=== PATIENT | female | born 2000 | race Hispanic/Latino ===

== ENCOUNTER 2020-03-02 15:47 | Day surgery (SDC) | payer OTHER ==
[2020-03-02 16:06] VITALS: BMI 27.5
[2020-03-02] MEDS ORDERED: hydrALAZINE 20 MG/ML VIAL SLOW IVP PRN (16:15)
--- NOTE | 2020-03-02 17:16 | PRG ---
DATE OF SERVICE: 03/02/2020 PRIMARY OB: Kaur Fried CNM. CHIEF COMPLAINT: Abdominal pain. HISTORY OF PRESENT ILLNESS: The patient is a 19-year-old G1, P0 female with an intrauterine at 38 weeks and 5 days, presenting to Labor and Delivery with occasional abdominal pains. She is unable to tell us how frequently they are happening or how intense they are, but has come in for evaluation. The patient denies leakage of fluid or vaginal bleeding. She does report that she started treatment for a yeast infection about 2 days ago. She reports she has had intercourse in the last 24-48 hours. She denies fever, cough, headache, chest pain, shortness of breath, nausea, vomiting, diarrhea, constipation, hip problems, knee problems, muscle weakness, and she does report she has started having a new rash on her abdomen in the last few days. Again, denies leakage of fluid, vaginal bleeding, urinary urgency, or frequency. PAST MEDICAL HISTORY: Negative. PAST SURGICAL HISTORY: Negative. ALLERGIES: NO KNOWN DRUG ALLERGIES. MEDICATIONS: vitamins. OB LABS: Blood type is O positive. Antibody screen is negative. VDRL is nonreactive in the first trimester. Hepatitis B surface antigen nonreactive in the first trimester. HIV nonreactive. GC and chlamydia negative in the first trimester. She is rubella immune. One-hour glucose was 93. Third trimester VDRL is nonreactive. REVIEW OF SYSTEMS: Per HPI. PHYSICAL EXAMINATION: VITAL SIGNS: Blood pressure is 110/66, heart rate 92, respiratory rate of 18, saturating 98% on room air, temperature 98.4. GENERAL: She appears to be in no acute distress. She is alert, oriented, cooperative, and pleasant to interact with. HEAD: Normocephalic and atraumatic. LUNGS: Clear to auscultation bilaterally. HEART: Regular rate and rhythm. ABDOMEN: Gravid, soft, nontender. Her abdomen does have a papular rash in the stretch nguyen. This rash is umbilical sparing and is pruritic. EXTREMITIES: Nontender. Nonedematous. CERVICAL: 150, -3 station per nursing staff. heart tracing shows a baseline in the 140s with moderate long-term variability, positive 15 x 15 accelerations, no decelerations. She has had some underlying irritability and 1 or 2 contractions during her stay. ASSESSMENT AND PLAN: The patient is a 19-year-old G1, P0 female with an intrauterine at 38 weeks and 5 days, presenting for contractions. There is no evidence of labor at this time. Fetus has a category 1 tracing and reactive NST. The patient has been given term labor precautions and is being discharged to home. Her next appointment is on Friday with her primary provider which we have encouraged that she keep if she does not go into labor before then. Job ID: [id number]
== END 2020-03-02 16:32 | disposition home or self-care (01) ==
LOC: L&D/OP 15:47
PROVIDERS: ATTEND Advanced Practice Midwife
DX: O47.1 False labor at or after 37 completed weeks of gestation (principal); O98.813 Other maternal infectious and parasitic diseases complicating pregnancy, third trimester; B37.9 Candidiasis, unspecified; Z3A.38 38 weeks gestation of pregnancy
CPT/HCPCS: 99282

== ENCOUNTER 2020-03-08 19:40 | Inpatient (IN) | payer OTHER ==
[~2020-03-08 19:40] MED LIST: Bupivacaine/Epinephrine 0.25% 30 ML VIAL ONE
[2020-03-08] MEDS ORDERED: Ondansetron PF 4 MG/2 ML Vial IVP PRN (21:48)
[2020-03-08] MEDS ORDERED: Lidocaine 1% (PF) 30 ML VIAL SC PRN (21:48)
[2020-03-08] MEDS ORDERED: NS / Oxytocin 40 units/1000ml 1,000 ML IV PRN (21:48)
[2020-03-08] MEDS ORDERED: HYDROcodone/Acetaminophen 5/325 mg Tablet PO PRN (21:48)
[2020-03-08] MEDS ORDERED: hydrALAZINE 20 MG/ML VIAL SLOW IVP PRN (21:48)
[2020-03-08] MEDS ORDERED: Ibuprofen 800 MG TAB PO PRN (21:48)
[2020-03-08] MEDS ORDERED: Butorphanol Tartrate 1 MG/ML VIAL SLOW IVP PRN (21:48)
[2020-03-08] MEDS: Lactated Ringer's 1,000 ML IV SCH ×2 (21:50→22:38)
[2020-03-08 21:51] VITALS: BMI 27.3
[2020-03-08] MEDS ORDERED: Misoprostol 100 MCG TAB VAG SCH ×2 (22:00)
[2020-03-08] MEDS ORDERED: Lactated Ringer's 1,000 ML IV SCH (22:00)
[2020-03-08] MEDS ORDERED: Penicillin G Potassium 5 MILL.UNITS in Sodium Chloride 0.9% 100 ML IVPB SCH (22:00)
[2020-03-08 22:27] LABS: Hemoglobin 8.9 g/dL (12.0-16.0); Mean Corpuscular HGB CONC 32.9 g/dL (32.0-36.0); Mean Corpuscular Hemoglobin 29.1 pg (25.0-35.0); Mean Corpuscular Volume 88.5 fL (78.0-98.0); Mean Platelet Volume 10.3 fL (7.4-10.4); Platelet Count 250 thou/uL (130-400); RBC Distribution Width 14.5 % (11.5-14.5); Red Blood Cell (RBC) Count 3.07 mill/uL (4.00-5.20); White Blood Cell (WBC) Count 11.1 thou/uL (4.8-10.8)
[2020-03-08 23:05] LABS: HBSAg Index 0.25 S/CO (0-0.99); Hep B Surf Ag Non-Reactive S/CO (NonReactive); Syphilis Antibody Nonreactive (Nonreactive); Syphilis Antibody Index 0.04 S/CO (<1.00 Non-Reactive)
[2020-03-09] MEDS ORDERED: Fentanyl 4 mcg/Bup 0.1% Cadd 100 ML ONE ×2 (00:54→11:30)
[2020-03-09] MEDS: Penicillin G 2.5 MILL.units 2.5 MILL.UNITS in Premix Bag 1 BAG IVPB SCH ×4 (02:51→20:40)
[2020-03-09] MEDS ORDERED: diphenhydrAMINE 50 MG/ML VIAL IVP PRN (03:32)
[2020-03-09] MEDS ORDERED: Promethazine HCl 25 MG/ML VIAL IM PRN (03:32)
[2020-03-09] MEDS ORDERED: EPHEDRINE 25 MG/5 ML SYRINGE SLOW IVP PRN (03:32)
[2020-03-09] MEDS ORDERED: Lactated Ringer's 500 ML IV PRN (03:32)
[2020-03-09] MEDS ORDERED: Acetaminophen 325 MG TAB PO PRN (03:32)
[2020-03-09] MEDS ORDERED: Ondansetron PF 4 MG/2 ML Vial IVP PRN (03:32)
[2020-03-09] MEDS ORDERED: Naloxone HCl 0.4 mg/ml Vial IVP PRN ×2 (03:32)
[2020-03-09] MEDS ORDERED: Fentanyl 4 mcg/Bupivacaine 0.1% Cassette 100 ML EPIDURAL SCH (03:45)
[2020-03-09] MEDS ORDERED: Communication Order-Pharmacy FS SCH (03:45)
[2020-03-09] MEDS: Lactated Ringer's 1,000 ML IV SCH (06:06)
[2020-03-09] MEDS ORDERED: NS w/ Oxytocin 10 units 500 ML IVPB SCH (06:45)
--- NOTE | 2020-03-09 15:34 | PDOC.LDHP ---
Labor and Delivery H&P Chief complaint: scheduled induction HPI: Mary is a 19 y.o at 39w 4 days who is scheduled for an elective IOL Current gestational age (weeks): 39 Due date: 03/11/20 Dating criteria: last menstrual period (verified with first trimester US at 8w3d ) Grav: 1 Para: 0 OB History Details: none Current complications: none Abnormal US findings: No Current medications: pre-eric vitamins Previous surgical history: none Allergies/Adverse Reactions: Allergies Allergy/AdvReac Type Severity Reaction Status Date / Time No Known Allergies Allergy Verified 03/08/20 21:52 Social history: other - Physical Exam Vital signs reviewed and normal: yes General: breathing through contractions Lungs: nonlabored breathing Abdomen: gravid FHT: category 1 - Vaginal Exam cm dilated: 1 Effacement: 50% Station: -3 - OB Labs Blood type: O RH: positive Antibody Screen: negative HIV: negative RPR: negative HEPSAg: negative 1 hour GCT: negative GBS: positive Urine drug screen: negative Rubella: immune - Assessment L&D Assessment: elective induction at term - Plan Plan: admit to L&D, cervical ripening, labor augmentation if indicated, GBS antibiotic prophylaxis
[2020-03-09] MEDS ORDERED: Misoprostol 200 MCG TAB VAG PRN (16:54)
[2020-03-09] MEDS ORDERED: Methylergonovine 0.2 MG/ML VIAL IM PRN (16:54)
[2020-03-09] MEDS ORDERED: Bisacodyl 10 MG SUPP PR PRN (16:54)
[2020-03-09] MEDS ORDERED: Milk Of Magnesia 30 ML UDCUP PO PRN (16:54)
[2020-03-09] MEDS ORDERED: hydrALAZINE 20 MG/ML VIAL SLOW IVP PRN (16:54)
[2020-03-09] MEDS ORDERED: Benzocaine-Menthol 82.5 ML CAN TOP PRN (16:54)
[2020-03-09] MEDS ORDERED: HYDROcodone/Acetaminophen 5/325 mg Tablet PO PRN ×2 (16:54)
[2020-03-09] MEDS ORDERED: Lanolin Ointment 7 GM TUBE TOP PRN (16:54)
[2020-03-09] MEDS: Ibuprofen 800 MG TAB PO SCH (17:55)
[2020-03-09] MEDS: NS / Oxytocin 40 units/1000ml 1,000 ML IV SCH ×2 (17:56→18:27)
[2020-03-09] MEDS: Ferrous Sulfate 325 MG TAB PO SCH (18:48)
[2020-03-09] MEDS: Docusate Calcium (SURFAK) 240 MG CAP PO SCH (22:27)
[2020-03-10] MEDS: Ibuprofen 800 MG TAB PO SCH ×2 (05:07→14:56)
[2020-03-10] MEDS ORDERED: Adacel (T-DAP) 0.5 ML SYRINGE IM ONE (09:00)
[2020-03-10] MEDS ORDERED: Prenatal Vitamin 1 TAB PO SCH (09:00)
[2020-03-10] MEDS: Ferrous Sulfate 325 MG TAB PO SCH ×2 (09:21→18:30)
[2020-03-10] MEDS: Docusate Calcium (SURFAK) 240 MG CAP PO SCH (09:21)
--- NOTE | 2020-03-10 11:01 | PDOC.PP ---
Post Progress Note Post Day #: 1 Subjective: doing well, sore, ambulating and voiding well PO intake tolerated: yes Flatus: yes Ambulation: yes Vital Signs (12 hours) Temp Pulse Resp BP Pulse Ox 03/10/20 07:46 98.8 F 78 20 104/58 L 99 03/10/20 05:05 98.5 F 87 18 105/56 L 100 03/10/20 00:00 98.5 F 95 18 105/59 L 99 Weight Weight 145 lb - Physical Examination General: NAD Respiratory: non-labored breathing Abdominal: no distention Fundus firm & at: below umb Skin: no rash Neurological: no gross focal deficits Psychiatric: A&Ox3, normal affect Result Diagrams: 03/08/20 22:11 Additional Labs: Post Labs Blood Type O POSITIVE 03/08/20 23:45 Hep Bs Antigen Non-Reactive S/CO (NonReactive) 03/08/20 22:11 (1) Vaginal delivery Code(s): O80 - ENCOUNTER FOR FULL-TERM UNCOMPLICATED DELIVERY Status: Acute (2) Term Code(s): Z34.90 - ENCNTR FOR SUPRVSN OF NORMAL , UNSP, UNSP TRIMESTER Status: Acute (3) Anemia affecting Code(s): O99.019 - ANEMIA COMPLICATING , UNSPECIFIED TRIMESTER Status : Acute - Assessment/Plan PPD1 doing well sp IOL and . Pt will consider late evening/afternoon DC if baby DC, otherwise likely DC tomorrow.
[2020-03-10 11:59] VITALS: BP 121/72; TEMP 98.4
== END 2020-03-10 19:01 | disposition home or self-care (01) | DRG 807 ==
LOC: L&D-LIB 19:40 → 3SE 03-09 21:07
PROVIDERS: ADMIT Student in an Organized Health Care Education/Training Program; ATTEND Student in an Organized Health Care Education/Training Program
PROC: 10E0XZZ Delivery of Products of Conception, External Approach (ICD-10-PCS; principal; 2020-03-09)
DX: O99.02 Anemia complicating childbirth (principal); Z37.0 Single live birth; D64.9 Anemia, unspecified; Z3A.39 39 weeks gestation of pregnancy
CPT/HCPCS: 36415; 85027; 86780; 86850; 86900; 86901; 87340; J2405; J2540; J2590; J3490